=== PATIENT | female | born 1940 | race Native Hawaiian/Other Pacific Islander ===

== ENCOUNTER 2018-04-11 07:13 | Outpatient (CLI) | payer OTHER, BC ==
[2018-04-11] MEDS ORDERED: ACID REDUCER150 M1 PO (07:58)
[2018-04-11] MEDS ORDERED: LISI20TA11 PO (07:58)
[2018-04-11] MEDS ORDERED: AMLODIPINE BESYLATE PO (07:59)
[2018-04-11] MEDS ORDERED: TIROSINT75 MCG PO (08:00)
== END 2018-04-11 07:38 | disposition short-term general hospital (02) ==
LOC: AMB 07:13
DX: M25.571 Pain in right ankle and joints of right foot (principal); W06.XXXA Fall from bed, initial encounter; Y93.89 Activity, other specified; Y92.013 Bedroom of single-family (private) house as the place of occurrence of the external cause
CPT/HCPCS: A0425; A0427

== ENCOUNTER 2018-04-11 07:43 | Emergency (ER) | payer OTHER, BC ==
[~2018-04-11] VITALS: Ht 172.7 cm; Wt 90.7 kg
[2018-04-11] MEDS ORDERED: ACID REDUCER150 M1 PO (07:58)
[2018-04-11] MEDS ORDERED: LISI20TA11 PO (07:58)
[2018-04-11] MEDS ORDERED: AMLODIPINE BESYLATE PO (07:59)
[2018-04-11] MEDS ORDERED: TIROSINT75 MCG PO (08:00)
[2018-04-11 09:41] VITALS: BP 165/79; TEMP 98.1
== END 2018-04-11 09:51 | disposition home or self-care (01) ==
LOC: ED 07:43
DX: S82.854A Nondisplaced trimalleolar fracture of right lower leg, initial encounter for closed fracture (principal); W18.39XA Other fall on same level, initial encounter; Y92.098 Other place in other non-institutional residence as the place of occurrence of the external cause
CPT/HCPCS: 99282